=== PATIENT | male | born 1940 | race Caucasian/White ===

== ENCOUNTER 2019-12-31 04:30 | Inpatient (IN) ==
[2019-12-31] MEDS ORDERED: 0.9 % Sodium Chloride 1,000 ML IVC ONE ×2 (04:49→05:05)
[2019-12-31] MEDS ORDERED: Isovue-370 500 ML BOTTLE IVP ONE (04:50)
[2019-12-31] MEDS ORDERED: 0.9 % Sodium Chloride 1,000 ML ONE (04:52)
[2019-12-31 05:05] LABS: VBG HCO3 28 mEq/L (21-27); VBG PCO2 53 mmHg (41-51); VBG PH 7.32 pH Units (7.32-7.42); VBG PO2 40 mmHg (25-50)
[2019-12-31] MEDS ORDERED: Cefepime HCl 2,000 MG in 0.9 % Sodium Chloride Mini Bag 100 ML IVPB ONE (05:05)
[2019-12-31] MEDS ORDERED: Ondansetron 4 MG/2 ML VIAL IVP ONE (05:05)
[2019-12-31 05:08] LABS: Basophils % 0.1 %; Eosinophils % 0.1 %; Hematocrit 37.7 % (37.5-50.1); Hemoglobin 11.5 g/dL (12.9-16.9); Immature Granulocytes % 0.3 % (0-4); Lymphocytes # 0.8 K/mcL (0.6-4.6); Lymphocytes % 12.1 %; Mean Corpuscular HGB Conc 30.5 g/dL (31.6-35.5); Mean Corpuscular Volume 85.3 fL (83.0-100.0); Mean Platelet Volume 11.2 fL (9.4-12.4); Monocytes % 0.6 %; Neutrophils # 5.9 K/mcL (1.6-8.9); Platelet Count 206 K/mcL (140-400); Red Blood Count 4.42 M/mcL (4.19-5.50); Red Cell Distribution Width 15.9 % (11.5-14.5); Segmented Neutrophils % 86.8 %; White Blood Count 6.8 K/mcL (4.3-11.1)
[2019-12-31 05:18] LABS: INR 1.1; Prothrombin Time 12.2 Seconds (9.4-12.1)
[2019-12-31 05:20] LABS: Activated Partial Thrombo Time 31.4 Seconds (26.0-36.0)
[2019-12-31 05:26] LABS: Alanine Aminotransferase 9 Units/L (7-52); Albumin 4.1 g/dL (3.5-5.7); Albumin/Globulin Ratio 1.2 (1.1-2.2); Alkaline Phosphatase 79 Units/L (34-104); Aspartate Amino Transferase 15 Units/L (13-39); BUN/Creatinine Ratio 12 (6-26); Bilirubin,Direct 0.2 mg/dL (0.0-0.2); Bilirubin,Indirect 0.5 mg/dL (0.0-1.0); Bilirubin,Total 0.7 mg/dL (0.3-1.0); Blood Urea Nitrogen 17 mg/dL (8-23); Carbon Dioxide 26 mEq/L (23-29); Chloride 103 mEq/L (98-107); Ethanol < 10 mg/dL (Less than 10); Globulin 3.3 g/dL (2.4-3.5); Glucose 141 mg/dL (70-105); Osmolality,Calculated 290 (280-300); Potassium 3.9 mEq/L (3.5-5.1); Sodium 138 mEq/L (136-145); Total Protein 7.4 g/dL (6.4-8.9); Troponin I < 0.03 ng/mL (< 0.04); eGFR For African Americans 57 (> 60); eGFR For Non-African Americans 47 (> 60)
[2019-12-31 05:37] LABS: Lipase 17 Units/L (11-82)
[2019-12-31 05:39] LABS: Thyroid Stimulating Hormone 1.064 mcIU/mL (0.340-5.600)
[2019-12-31] MEDS ORDERED: Morphine Sulfate 2 MG/ML SYRINGE IVP ONE (06:01)
[2019-12-31 06:15] LABS: Bilirubin,Urine Negative (Negative); Blood,Urine Negative (Negative); Clarity,Urine Clear (Clear); Color,Urine Light-Yellow (Yellow); Glucose,Urine (UA) Normal (Normal); Ketones,Urine Negative (Negative); Leukocyte Esterase,Urine Negative (Negative); Nitrite,Urine Negative (Negative); Protein,Urine Trace mg/dL (Neg-Trace); Specific Gravity,Urine > 1.030 (1.010-1.025); Urobilinogen,Urine Normal (Normal)
[2019-12-31 06:41] LABS: Amphetamine Screen,Urine Negative ng/mL (Cutoff=1000); Barbiturate Screen,Urine Negative ng/mL (Cutoff=200)
[2019-12-31 06:42] LABS: Benzodiazepines Screen,Urine Negative ng/mL (Cutoff=300); Cannabinoid Screen,Urine Negative ng/mL (Cutoff = 50); Cocaine Screen,Urine Negative ng/mL (Cutoff= 300); Opiate Screen,Urine Positive ng/mL (Cutoff=300); Phencyclidine Screen,Urine Negative ng/mL (Cutoff=25)
[2019-12-31] MEDS ORDERED: Aspirin 81 MG TAB.CHEW PO ONE (06:46)
[2019-12-31] MEDS ORDERED: Azithromycin 500 MG in 0.9 % Sodium Chloride 250 ML IVPB ONE (06:58)
[2019-12-31] MEDS ORDERED: *HR* Heparin 5,000 UNIT/ML VIAL IVP PRN ×2 (07:05)
[2019-12-31] MEDS ORDERED: *HR* Heparin 5,000 UNIT/ML VIAL IVP ONE (07:05)
[2019-12-31] MEDS ORDERED: *HR* Ticagrelor 90 MG TABLET ONE (07:06)
[2019-12-31] MEDS ORDERED: *HR* Heparin 5,000 UNIT/ML VIAL ONE (07:07)
[2019-12-31] MEDS ORDERED: Heparin 25,000 UNIT/250 ML D5W 25,000 UNIT/250 ML IV.SOLN IVC SCH (07:15)
[2019-12-31] MEDS ORDERED: *HR* Heparin 10,000 UNIT/10 ML VIAL ONE ×2 (07:22→12:48)
[2019-12-31] MEDS ORDERED: ISOVUE-370 200 ML INFUS..BTL ONE ×2 (07:22→12:48)
[2019-12-31] MEDS ORDERED: Nitroglycerin 1,000 MCG/10 ML VIAL IV ONE ×3 (07:22→12:56)
[2019-12-31] MEDS ORDERED: Heparin 1,000 UNITS/500 mL 500 ML ONE ×2 (07:22→12:48)
[2019-12-31] MEDS ORDERED: 0.9 % Sodium Chloride 2,000 ML ONE ×2 (07:22→12:48)
[2019-12-31] MEDS ORDERED: *HR* Midazolam HCl 2 MG/2 ML VIAL ONE ×2 (07:42→13:28)
[2019-12-31] MEDS ORDERED: *HR* FentaNYL (PF) 100 MCG/2 ML VIAL ONE ×2 (07:42→13:29)
[2019-12-31] MEDS ORDERED: Tirofiban 12.5 MG/250ML 0 MG/0 ML BAG ONE (07:43)
[2019-12-31] MEDS ORDERED: Naloxone 0.4 MG/ML INJ IVP PRN (09:17)
[2019-12-31] MEDS ORDERED: Ondansetron 4 MG/2 ML VIAL IVP PRN (09:17)
[2019-12-31 09:22] LABS: Basophils % 0.1 %; Hematocrit 30.7 % (37.5-50.1); Immature Granulocytes % 0.3 % (0-4); Lymphocytes # 0.2 K/mcL (0.6-4.6); Lymphocytes % 1.5 %; Mean Corpuscular HGB Conc 31.3 g/dL (31.6-35.5); Mean Corpuscular Hemoglobin 26.3 pg (28.0-33.3); Mean Corpuscular Volume 84.1 fL (83.0-100.0); Monocytes # 0.2 K/mcL (0.0-1.3); Monocytes % 1.5 %; Neutrophils # 11.2 K/mcL (1.6-8.9); Platelet Count 165 K/mcL (140-400); Red Blood Count 3.65 M/mcL (4.19-5.50); Red Cell Distribution Width 15.8 % (11.5-14.5); Segmented Neutrophils % 96.6 %
[2019-12-31 09:31] LABS: Hemoglobin 9.6 g/dL (12.9-16.9); White Blood Count 11.6 K/mcL (4.3-11.1)
[2019-12-31 09:48] LABS: Albumin 3.2 g/dL (3.5-5.7); Albumin/Globulin Ratio 1.2 (1.1-2.2); Bilirubin,Direct 0.2 mg/dL (0.0-0.2); Bilirubin,Indirect 0.5 mg/dL (0.0-1.0); Bilirubin,Total 0.7 mg/dL (0.3-1.0); Globulin 2.6 g/dL (2.4-3.5); Total Protein 5.8 g/dL (6.4-8.9)
[2019-12-31 09:59] LABS: Carcinoembryonic Antigen 1.2 ng/mL (Less than 5.0)
[2019-12-31 11:24] LABS: Hepatitis B Surface Antigen Nonreactive (Nonreactive)
[2019-12-31] MEDS ORDERED: 0.9 % Sodium Chloride 250 ML IVC SCH (11:45)
[2019-12-31 11:54] LABS: Hepatitis A Antibody IgM Nonreactive (Nonreactive); Hepatitis C Virus Antibody Nonreactive (Nonreactive)
[2019-12-31 11:58] LABS: Hematocrit 34.2 % (37.5-50.1); Hemoglobin 10.4 g/dL (12.9-16.9)
[2019-12-31] MEDS ORDERED: Vancomycin 1,500 MG/265 ML IV.SOLN IVPB SCH (12:00)
[2019-12-31] MEDS ORDERED: Piperacillin/Tazobactam 3.375 GM in 0.9 % Sodium Chloride Mini Bag 100 ML IVPB SCH (12:00)
[2019-12-31] MEDS: Pantoprazole 40 MG in 0.9 % Sodium Chloride Mini Bag 100 ML IVC SCH ×4 (12:56→22:59)
[2019-12-31] MEDS ORDERED: Tirofiban 12.5 MG/250ML 12.5 MG/250 ML BAG ONE (12:58)
[2019-12-31 13:13] LABS: Prostate Specific Antigen 1.48 ng/mL (Less than 4.00)
[2019-12-31] MEDS ORDERED: Tirofiban 12.5 MG/250ML 12.5 MG/250 ML BAG IVC SCH (14:00)
[2019-12-31] MEDS ORDERED: Azithromycin 500 MG in 0.9 % Sodium Chloride 250 ML IVPB SCH (17:00)
[2019-12-31] MEDS: Cefepime HCl 2,000 MG in 0.9 % Sodium Chloride Mini Bag 100 ML IVPB SCH (17:16)
[2019-12-31] MEDS: Ampicillin 1,000 MG in 0.9 % Sodium Chloride Mini Bag 100 ML IVPB SCH ×2 (17:18→23:33)
[2019-12-31] MEDS: Acyclovir 500 MG in D5% in Water 100 ML IVPB SCH (17:54)
[2019-12-31] MEDS: Acetaminophen 325 MG TABLET PO PRN ×2 (18:18→22:51)
[2019-12-31 18:54] LABS: Hemoglobin 9.8 g/dL (12.9-16.9)
[2019-12-31] MEDS ORDERED: IPRATROPIUM/ALBUTEROL SULFATE 120 PUFF INHALER IH SCH (22:00)
[2019-12-31] MEDS ORDERED: Ipratropium 1 PUFF INHALER IH SCH (22:00)
[2019-12-31] MEDS ORDERED: Levalbuterol Neb 1.25 MG/3 ML ONE (23:35)
[2019-12-31 23:46] LABS: Hematocrit 29.6 % (37.5-50.1); Hemoglobin 9.1 g/dL (12.9-16.9)
[2020-01-01 00:02] LABS: Calcium 7.6 mg/dL (8.6-10.3); Magnesium 1.7 mg/dL (1.6-2.6)
[2020-01-01] MEDS: Acyclovir 500 MG in D5% in Water 100 ML IVPB SCH ×2 (00:18→07:53)
[2020-01-01] MEDS ORDERED: Magnesium Sulfate 1 GM/102 ML PIGGYBACK IVPB ONE (00:55)
[2020-01-01] MEDS: Pantoprazole 40 MG in 0.9 % Sodium Chloride Mini Bag 100 ML IVC SCH ×2 (03:20→07:57)
[2020-01-01] MEDS: Levalbuterol Neb 1.25 MG/3 ML IH SCH ×4 (04:11→21:47)
[2020-01-01] MEDS: Cefepime HCl 2,000 MG in 0.9 % Sodium Chloride Mini Bag 100 ML IVPB SCH (06:03)
[2020-01-01] MEDS: Ampicillin 1,000 MG in 0.9 % Sodium Chloride Mini Bag 100 ML IVPB SCH (06:03)
[2020-01-01 06:10] LABS: Hematocrit 29.9 % (37.5-50.1); Immature Platelets 9.2 % (1.1-6.1); Mean Corpuscular HGB Conc 30.1 g/dL (31.6-35.5); Mean Corpuscular Hemoglobin 26.1 pg (28.0-33.3); Mean Corpuscular Volume 86.7 fL (83.0-100.0); Platelet Count 133 K/mcL (140-400); Red Blood Count 3.45 M/mcL (4.19-5.50); Red Cell Distribution Width 16.7 % (11.5-14.5); White Blood Count 13.4 K/mcL (4.3-11.1)
[2020-01-01 06:25] LABS: Anisocytosis 1+ (Not Present); Lymphocytes # 1.6 K/mcL (0.6-4.6); Monocytes # 0.5 K/mcL (0.0-1.3); Platelet Estimate Decreased (Normal); Reactive Lymphocytes Present (Not Present)
[2020-01-01 06:29] LABS: Calcium 7.9 mg/dL (8.6-10.3); Potassium 3.9 mEq/L (3.5-5.1)
[2020-01-01] MEDS ORDERED: Aspirin 81 MG TAB.CHEW PO SCH (10:00)
[2020-01-01] MEDS ORDERED: Calcium Gluconate 1gm/50mL 1 GM/50 ML BAG IVPB PRN (10:00)
[2020-01-01] MEDS ORDERED: Ondansetron 4 MG/2 ML VIAL IVP PRN (11:29)
[2020-01-01] MEDS ORDERED: Naloxone 0.4 MG/ML INJ IVP PRN (11:29)
[2020-01-01] MEDS ORDERED: Ampicillin 2 GM in 0.9 % Sodium Chloride Mini Bag 100 ML IVPB SCH (12:00)
[2020-01-01] MEDS: Vancomycin 1,500 MG/265 ML IV.SOLN IVPB SCH (12:05)
[2020-01-01 16:02] LABS: Hemoglobin 9.1 g/dL (12.9-16.9)
[2020-01-01] MEDS: Cefepime HCl 2,000 MG in Water for inj. (sterile) 20 ML IVP SCH (17:02)
[2020-01-01] MEDS: Pantoprazole 40 MG VIAL IVP SCH (17:02)
[2020-01-01] MEDS: Azithromycin 500 MG in 0.9 % Sodium Chloride 250 ML IVPB SCH (17:03)
[2020-01-01] MEDS ORDERED: Pantoprazole 40 MG VIAL IVP SCH (18:00)
[2020-01-01] MEDS ORDERED: Acyclovir 800 MG in D5% in Water 250 ML IVPB SCH ×2 (18:00)
[2020-01-01 19:22] LABS: Uric Acid 4.4 mg/dL (2.3-7.6)
[2020-01-01 20:54] LABS: Sodium, Urine 20.5 mEq/L
[2020-01-01] MEDS ORDERED: Levalbuterol Neb 1.25 MG/3 ML IH ONE (23:31)
[2020-01-02 00:33] LABS: Albumin/Globulin Ratio 1.1 (1.1-2.2); Bilirubin,Total 0.5 mg/dL (0.3-1.0); Calcium 7.6 mg/dL (8.6-10.3); Globulin 2.8 g/dL (2.4-3.5); Magnesium 1.9 mg/dL (1.6-2.6); Phosphorous 1.7 mg/dL (2.7-4.5); Potassium 3.5 mEq/L (3.5-5.1); Total Protein 5.8 g/dL (6.4-8.9)
[2020-01-02 00:52] LABS: Basophils % 0.1 %; Hematocrit 28.5 % (37.5-50.1); Hemoglobin 8.8 g/dL (12.9-16.9); Immature Granulocytes % 0.7 % (0-4); Lymphocytes # 0.6 K/mcL (0.6-4.6); Lymphocytes % 4.7 %; Mean Corpuscular HGB Conc 30.9 g/dL (31.6-35.5); Mean Corpuscular Hemoglobin 25.7 pg (28.0-33.3); Mean Corpuscular Volume 83.3 fL (83.0-100.0); Mean Platelet Volume 11.9 fL (9.4-12.4); Monocytes # 1.1 K/mcL (0.0-1.3); Neutrophils # 10.8 K/mcL (1.6-8.9); Platelet Count 121 K/mcL (140-400); Red Blood Count 3.42 M/mcL (4.19-5.50); Red Cell Distribution Width 16.6 % (11.5-14.5); Segmented Neutrophils % 85.5 %; White Blood Count 12.6 K/mcL (4.3-11.1)
[2020-01-02 02:25] LABS: Platelet Estimate Normal (Normal)
[2020-01-02 02:36] LABS: VBG Ionized Calcium 1.13 mmol/L (1.15-1.35)
[2020-01-02] MEDS: Levalbuterol Neb 1.25 MG/3 ML IH SCH ×4 (03:38→21:54)
[2020-01-02] MEDS: Cefepime HCl 2,000 MG in Water for inj. (sterile) 20 ML IVP SCH ×2 (06:40→16:55)
[2020-01-02] MEDS: Pantoprazole 40 MG VIAL IVP SCH (06:40)
[2020-01-02] MEDS: Aspirin 81 MG TAB.CHEW PO SCH (07:56)
[2020-01-02 08:12] LABS: Hematocrit 27.8 % (37.5-50.1); Hemoglobin 8.8 g/dL (12.9-16.9)
[2020-01-02] MEDS: Vancomycin 1,500 MG/265 ML IV.SOLN IVPB SCH (12:24)
[2020-01-02] MEDS: Acetaminophen 325 MG TABLET PO PRN ×2 (12:25→19:52)
[2020-01-02] MEDS ORDERED: Potassium Phosphate 44 MEQ in 0.9 % Sodium Chloride 250 ML IVPB ONE (13:06)
[2020-01-02] MEDS ORDERED: 0.9 % Sodium Chloride 1,000 ML IVC SCH (14:15)
[2020-01-02 15:55] LABS: Hematocrit 29.9 % (37.5-50.1); Hemoglobin 9.4 g/dL (12.9-16.9)
[2020-01-02] MEDS ORDERED: 0.9 % Sodium Chloride 250 ML ONE (16:48)
[2020-01-02] MEDS: Azithromycin 500 MG in 0.9 % Sodium Chloride 250 ML IVPB SCH (16:54)
[2020-01-02] MEDS: Metoprolol XL (24 HR) Succ 25 MG TAB.ER.24H PO SCH (19:51)
[2020-01-03 00:35] LABS: Hematocrit 28.2 % (37.5-50.1); Hemoglobin 8.9 g/dL (12.9-16.9)
[2020-01-03 01:23] LABS: Hematocrit 30.1 % (37.5-50.1); Hemoglobin 9.4 g/dL (12.9-16.9); Immature Platelets 14.8 % (1.1-6.1); Mean Corpuscular HGB Conc 31.2 g/dL (31.6-35.5); Mean Corpuscular Volume 83.4 fL (83.0-100.0); Mean Platelet Volume 12.5 fL (9.4-12.4); Red Blood Count 3.61 M/mcL (4.19-5.50); Red Cell Distribution Width 16.6 % (11.5-14.5); White Blood Count 15.3 K/mcL (4.3-11.1)
[2020-01-03 01:34] LABS: BUN/Creatinine Ratio 15 (6-26); Blood Urea Nitrogen 21 mg/dL (8-23); Calcium 8.3 mg/dL (8.6-10.3); Carbon Dioxide 23 mEq/L (23-29); Chloride 104 mEq/L (98-107); Glucose 101 mg/dL (70-105); Osmolality,Calculated 283 (280-300); Phosphorous 2.1 mg/dL (2.7-4.5); Potassium 3.7 mEq/L (3.5-5.1); Sodium 135 mEq/L (136-145); eGFR For African Americans > 60 (> 60); eGFR For Non-African Americans 50 (> 60)
[2020-01-03] MEDS: Levalbuterol Neb 1.25 MG/3 ML IH SCH ×5 (03:50→21:30)
[2020-01-03] MEDS: Cefepime HCl 2,000 MG in Water for inj. (sterile) 20 ML IVP SCH ×2 (05:34→17:22)
[2020-01-03] MEDS: Aspirin 81 MG TAB.CHEW PO SCH (08:29)
[2020-01-03] MEDS: Metoprolol XL (24 HR) Succ 25 MG TAB.ER.24H PO SCH ×2 (08:29→20:18)
[2020-01-03 08:31] LABS: Hematocrit 27.6 % (37.5-50.1); Hemoglobin 8.7 g/dL (12.9-16.9)
[2020-01-03 12:46] LABS: Adenovirus F 40/41 PCR Not detected (Not detect); Astrovirus PCR Not detected (Not detect); Campylobacter by PCR Not detected (Not detect); Cryptosporidium by PCR Not detected (Not detect); Cyclospora cayetanensis PCR Not detected (Not detect); E. coli O157 by PCR Not detected (Not detect); Entamoeba histolytica PCR Not detected (Not detect); Enteroaggregative E.coli(EAEC) Not detected (Not detect); Enteropathogenic E.coli(EPEC) Not detected (Not detect); Enterotoxigenic E.coli (ETEC) Not detected (Not detect); Giardia lamblia PCR Not detected (Not detect); Norovirus GI/GII PCR Not detected (Not detect); Plesiomonas shigelloides PCR Not detected (Not detect); Rotavirus A PCR Not detected (Not detect); Salmonella PCR Not detected (Not detect); Sapovirus PCR Not detected (Not detect); Shig/EnteroinvasiveE coli EIEC Not detected (Not detect); Shigalike tox-prod E coli STEC Not detected (Not detect); Vibrio PCR Not detected (Not detect); Vibrio cholerae PCR Not detected (Not detect); Yersinia enterocolitica PCR Not detected (Not detect)
[2020-01-03 12:49] LABS: C.difficile Toxin A/B Gene PCR DETECTED (Not detect)
[2020-01-03] MEDS: Vancomycin Oral Soln 125 MG/2.5 ML UDC PO SCH ×3 (13:42→20:18)
[2020-01-03] MEDS: Azithromycin 250 MG TABLET PO SCH (14:43)
[2020-01-03] MEDS: Acetaminophen 325 MG TABLET PO PRN (17:23)
[2020-01-04] MEDS: Levalbuterol Neb 1.25 MG/3 ML IH SCH ×4 (03:18→21:48)
[2020-01-04 04:46] LABS: Basophils % 0.2 %; Eosinophils % 0.1 %; Hematocrit 27.5 % (37.5-50.1); Hemoglobin 8.9 g/dL (12.9-16.9); Immature Granulocytes % 0.6 % (0-4); Lymphocytes # 1.1 K/mcL (0.6-4.6); Lymphocytes % 8.6 %; Mean Corpuscular HGB Conc 32.4 g/dL (31.6-35.5); Mean Corpuscular Hemoglobin 26.5 pg (28.0-33.3); Mean Corpuscular Volume 81.8 fL (83.0-100.0); Monocytes # 1.7 K/mcL (0.0-1.3); Neutrophils # 10.2 K/mcL (1.6-8.9); Platelet Count 170 K/mcL (140-400); Red Blood Count 3.36 M/mcL (4.19-5.50); Red Cell Distribution Width 16.6 % (11.5-14.5); Segmented Neutrophils % 77.5 %; White Blood Count 13.2 K/mcL (4.3-11.1)
[2020-01-04 05:06] LABS: BUN/Creatinine Ratio 13 (6-26); Blood Urea Nitrogen 17 mg/dL (8-23); Calcium 8.1 mg/dL (8.6-10.3); Carbon Dioxide 22 mEq/L (23-29); Chloride 103 mEq/L (98-107); Creatine Kinase 227 Units/L (30-223); Glucose 96 mg/dL (70-105); Osmolality,Calculated 277 (280-300); Phosphorous 1.1 mg/dL (2.7-4.5); Potassium 3.6 mEq/L (3.5-5.1); Sodium 133 mEq/L (136-145); eGFR For African Americans > 60 (> 60); eGFR For Non-African Americans 54 (> 60)
[2020-01-04] MEDS: Cefepime HCl 2,000 MG in Water for inj. (sterile) 20 ML IVP SCH ×2 (05:34→16:22)
[2020-01-04] MEDS ORDERED: Potassium Phosphate 44 MEQ in 0.9 % Sodium Chloride 250 ML IVPB ONE (07:22)
[2020-01-04] MEDS: Aspirin 81 MG TAB.CHEW PO SCH (09:22)
[2020-01-04] MEDS: Azithromycin 250 MG TABLET PO SCH (09:23)
[2020-01-04] MEDS: Metoprolol XL (24 HR) Succ 25 MG TAB.ER.24H PO SCH ×2 (09:23→19:47)
[2020-01-04] MEDS: Vancomycin Oral Soln 125 MG/2.5 ML UDC PO SCH ×4 (09:31→19:47)
[2020-01-04] MEDS: Acetaminophen 325 MG TABLET PO PRN (11:40)
[2020-01-05] MEDS: Levalbuterol Neb 1.25 MG/3 ML IH SCH ×4 (03:45→22:01)
[2020-01-05 04:18] LABS: Bacteria,Urine Few per hpf (None-Few); Bilirubin,Urine Negative (Negative); Blood,Urine Moderate (Negative); Clarity,Urine Clear (Clear); Color,Urine Light-Orange (Yellow); Glucose,Urine (UA) Normal (Normal); Ketones,Urine Negative (Negative); Leukocyte Esterase,Urine Negative (Negative); Mucus,Urine Few per lpf (None-Few); Nitrite,Urine Negative (Negative); Protein,Urine 200 mg/dL (Neg-Trace); RBC,Urine 0-3 per hpf (0-3); Specific Gravity,Urine 1.021 (1.010-1.025); Squamous Epithelial Cell,Urine Few per hpf (None-Few); Urobilinogen,Urine Normal (Normal); WBC,Urine 0-3 per hpf (0-3)
[2020-01-05 05:16] LABS: Basophils % 0.2 %; Eosinophils % 0.2 %; Hematocrit 24.3 % (37.5-50.1); Hemoglobin 7.9 g/dL (12.9-16.9); Immature Granulocytes % 1.2 % (0-4); Lymphocytes # 1.3 K/mcL (0.6-4.6); Mean Corpuscular HGB Conc 32.5 g/dL (31.6-35.5); Mean Corpuscular Hemoglobin 26.4 pg (28.0-33.3); Mean Corpuscular Volume 81.3 fL (83.0-100.0); Mean Platelet Volume 12.9 fL (9.4-12.4); Monocytes # 1.7 K/mcL (0.0-1.3); Monocytes % 13.4 %; Neutrophils # 9.7 K/mcL (1.6-8.9); Platelet Count 177 K/mcL (140-400); Red Blood Count 2.99 M/mcL (4.19-5.50); Red Cell Distribution Width 16.6 % (11.5-14.5); White Blood Count 12.9 K/mcL (4.3-11.1)
[2020-01-05 05:35] LABS: BUN/Creatinine Ratio 10 (6-26); Blood Urea Nitrogen 12 mg/dL (8-23); Calcium 7.8 mg/dL (8.6-10.3); Carbon Dioxide 22 mEq/L (23-29); Chloride 102 mEq/L (98-107); Glucose 105 mg/dL (70-105); Magnesium 1.8 mg/dL (1.6-2.6); Osmolality,Calculated 272 (280-300); Phosphorous 1.4 mg/dL (2.7-4.5); Potassium 3.6 mEq/L (3.5-5.1); Sodium 131 mEq/L (136-145); eGFR For African Americans > 60 (> 60); eGFR For Non-African Americans 56 (> 60)
[2020-01-05] MEDS: Cefepime HCl 2,000 MG in Water for inj. (sterile) 20 ML IVP SCH (05:36)
[2020-01-05] MEDS ORDERED: Potassium Phosphate 44 MEQ in 0.9 % Sodium Chloride 250 ML IVPB ONE (08:12)
[2020-01-05] MEDS: Vancomycin Oral Soln 125 MG/2.5 ML UDC PO SCH ×4 (09:34→21:14)
[2020-01-05] MEDS: Aspirin 81 MG TAB.CHEW PO SCH (09:35)
[2020-01-05] MEDS: Metoprolol XL (24 HR) Succ 25 MG TAB.ER.24H PO SCH ×2 (09:35→21:06)
[2020-01-05 14:53] LABS: Hemoglobin 8.9 g/dL (12.9-16.9)
[2020-01-05] MEDS: levoFLOXacin 750 MG TABLET PO SCH (17:16)
[2020-01-06 02:27] LABS: Basophils % 0.2 %; Eosinophils % 0.1 %; Hematocrit 25.7 % (37.5-50.1); Hemoglobin 8.3 g/dL (12.9-16.9); Immature Granulocytes % 2.3 % (0-4); Lymphocytes # 1.4 K/mcL (0.6-4.6); Lymphocytes % 10.4 %; Mean Corpuscular HGB Conc 32.3 g/dL (31.6-35.5); Mean Corpuscular Hemoglobin 26.2 pg (28.0-33.3); Mean Corpuscular Volume 81.1 fL (83.0-100.0); Mean Platelet Volume 12.2 fL (9.4-12.4); Monocytes # 1.6 K/mcL (0.0-1.3); Monocytes % 11.6 %; Neutrophils # 10.4 K/mcL (1.6-8.9); Platelet Count 246 K/mcL (140-400); Red Blood Count 3.17 M/mcL (4.19-5.50); Red Cell Distribution Width 16.2 % (11.5-14.5); Segmented Neutrophils % 75.4 %; White Blood Count 13.8 K/mcL (4.3-11.1)
[2020-01-06 02:48] LABS: BUN/Creatinine Ratio 7 (6-26); Blood Urea Nitrogen 9 mg/dL (8-23); Calcium 7.9 mg/dL (8.6-10.3); Carbon Dioxide 24 mEq/L (23-29); Chloride 101 mEq/L (98-107); Glucose 110 mg/dL (70-105); Magnesium 1.9 mg/dL (1.6-2.6); Osmolality,Calculated 273 (280-300); Potassium 3.7 mEq/L (3.5-5.1); Sodium 132 mEq/L (136-145); eGFR For African Americans > 60 (> 60); eGFR For Non-African Americans 57 (> 60)
[2020-01-06 03:01] LABS: Platelet Estimate Normal (Normal); Reactive Lymphocytes Present (Not Present)
[2020-01-06] MEDS: Levalbuterol Neb 1.25 MG/3 ML IH SCH ×3 (03:41→15:53)
[2020-01-06] MEDS ORDERED: Potassium Phosphate 44 MEQ in 0.9 % Sodium Chloride 250 ML IVPB ONE (09:17)
[2020-01-06] MEDS: Acetaminophen 325 MG TABLET PO PRN (10:13)
[2020-01-06] MEDS: Vancomycin Oral Soln 125 MG/2.5 ML UDC PO SCH ×2 (10:13→13:46)
[2020-01-06] MEDS: Metoprolol XL (24 HR) Succ 25 MG TAB.ER.24H PO SCH (10:14)
[2020-01-06] MEDS: levoFLOXacin 750 MG TABLET PO SCH (10:14)
[2020-01-06] MEDS: Aspirin 81 MG TAB.CHEW PO SCH (10:14)
[2020-01-06 12:08] VITALS: BP 144/78
== END 2020-01-06 17:52 | disposition left against medical advice (07) | DRG 853 ==
LOC: SUATTDRO → EMEROOARM 04:30 → ICNU 13:53 → SUATTDRO 13:53 → ICNU 13:58 → 2NENU 14:08 → ICNU 17:00 → 2ANU 01-01 13:42
PROVIDERS: ADMIT Pharmacist; ATTEND Internal Medicine

== ENCOUNTER 2020-06-21 15:31 | Observation (INO) ==
[2020-06-21 16:15] LABS: Basophils % 0.4 %; Eosinophils % 0.8 %; Hematocrit 16.1 % (37.5-50.1); Immature Granulocytes % 0.2 % (0-4); Lymphocytes # 1.5 K/mcL (0.6-4.6); Mean Corpuscular Hemoglobin 19.3 pg (28.0-33.3); Mean Corpuscular Volume 69.1 fL (83.0-100.0); Mean Platelet Volume 11.5 fL (9.4-12.4); Monocytes # 0.5 K/mcL (0.0-1.3); Monocytes % 9.3 %; Nucleated Red Blood Cells 0.8 /100 WBC (0); Platelet Count 297 K/mcL (140-400); Red Blood Count 2.33 M/mcL (4.19-5.50); Red Cell Distribution Width 18.2 % (11.5-14.5); Segmented Neutrophils % 60.3 %
[2020-06-21 16:20] LABS: INR 1.2; Prothrombin Time 14.1 Seconds (9.4-12.1)
[2020-06-21 16:22] LABS: Hemoglobin 4.5 g/dL (12.9-16.9)
[2020-06-21 16:23] LABS: Activated Partial Thrombo Time 31.8 Seconds (26.0-36.0)
[2020-06-21 16:41] LABS: Hypochromasia Present (Not Present)
[2020-06-21 16:42] LABS: Anisocytosis 1+ (Not Present); Microcytosis Present (Not Present); Platelet Estimate Slight Decrease (Normal)
[2020-06-21 16:44] LABS: Albumin 3.9 g/dL (3.5-5.7); Albumin/Globulin Ratio 1.4 (1.1-2.2); Bilirubin,Direct 0.1 mg/dL (0.0-0.2); Bilirubin,Indirect 0.4 mg/dL (0.0-1.0); Bilirubin,Total 0.5 mg/dL (0.3-1.0); Globulin 2.8 g/dL (2.4-3.5); Total Protein 6.7 g/dL (6.4-8.9)
[2020-06-21 16:46] LABS: Troponin I 0.05 ng/mL (< 0.04)
[2020-06-21] MEDS ORDERED: Ondansetron 4 MG/2 ML VIAL IVP PRN (17:19)
[2020-06-21] MEDS ORDERED: Naloxone 0.4 MG/ML INJ IVP PRN (17:19)
[2020-06-21] MEDS ORDERED: D5% in Water 1,000 ML IVC PRN (17:22)
[2020-06-21] MEDS ORDERED: *HR* Dextrose 50 % in Water (Vial) 50 ML VIAL IVP PRN (17:22)
[2020-06-21] MEDS ORDERED: Dextrose Gel 15 GM/37.5 ML TUBE PO PRN ×2 (17:22)
[2020-06-21 17:23] LABS: BUN/Creatinine Ratio 9 (6-26); Blood Urea Nitrogen 11 mg/dL (8-23); Calcium 8.6 mg/dL (8.6-10.3); Carbon Dioxide 25 mEq/L (23-29); Chloride 106 mEq/L (98-107); Glucose 120 mg/dL (70-105); Osmolality,Calculated 287 (280-300); Potassium 3.7 mEq/L (3.5-5.1); Sodium 138 mEq/L (136-145); eGFR For African Americans > 60 (> 60); eGFR For Non-African Americans 56 (> 60)
[2020-06-21] MEDS ORDERED: Isovue-370 500 ML BOTTLE IVP ONE (17:23)
[2020-06-21] MEDS ORDERED: 0.9 % Sodium Chloride 250 ML IVC SCH (17:30)
[2020-06-21] MEDS: Pantoprazole 40 MG in 0.9 % Sodium Chloride Mini Bag 100 ML IVC SCH ×2 (18:52→23:57)
[2020-06-21] MEDS ORDERED: SODIUM CHLORIDE/NAHCO3/KCL/PEG 4,000 ML SOLN.RECON PO ONE (19:18)
[2020-06-21] MEDS: Insulin LISPRO 300 UNITS/3 ML VIAL SQ SCH (20:35)
[2020-06-21] MEDS: Furosemide 20 MG/2 ML VIAL IVP SCH (20:48)
[2020-06-22] MEDS: Insulin LISPRO 300 UNITS/3 ML VIAL SQ SCH ×3 (00:04→12:35)
[2020-06-22] MEDS: Aspirin 81 MG TAB.CHEW PO SCH (08:56)
[2020-06-22] MEDS: Metoprolol XL (24 HR) Succ 25 MG TAB.ER.24H PO SCH (08:56)
[2020-06-22] MEDS: Furosemide 20 MG/2 ML VIAL IVP SCH ×2 (08:57→22:31)
[2020-06-22] MEDS: Pantoprazole 40 MG in 0.9 % Sodium Chloride Mini Bag 100 ML IVC SCH (08:57)
[2020-06-22 09:25] LABS: Hemoglobin 6.9 g/dL (12.9-16.9)
[2020-06-22 09:34] LABS: BUN/Creatinine Ratio 8 (6-26); Blood Urea Nitrogen 11 mg/dL (8-23); Calcium 9.1 mg/dL (8.6-10.3); Carbon Dioxide 25 mEq/L (23-29); Chloride 106 mEq/L (98-107); Glucose 84 mg/dL (70-105); Magnesium 2.1 mg/dL (1.6-2.6); Osmolality,Calculated 289 (280-300); Phosphorous 3.5 mg/dL (2.7-4.5); Potassium 3.6 mEq/L (3.5-5.1); Sodium 140 mEq/L (136-145); eGFR For African Americans > 60 (> 60); eGFR For Non-African Americans 51 (> 60)
[2020-06-22] MEDS ORDERED: Lidocaine -MPF 2% 2 ML VIAL ONE (11:40)
[2020-06-22] MEDS ORDERED: *HR* Propofol 200 MG/20 ML VIAL IVP ONE ×2 (11:40→11:55)
[2020-06-22] MEDS ORDERED: *HR* PHENYLEPHRINE 1,000 MCG/10 ML SYRINGE IVP ONE (11:48)
[2020-06-22] MEDS ORDERED: 0.9 % Sodium Chloride 250 ML ONE (12:44)
[2020-06-22 17:44] LABS: Hematocrit 25.9 % (37.5-50.1)
[2020-06-23 03:07] LABS: Hemoglobin 7.1 g/dL (12.9-16.9)
[2020-06-23 03:09] LABS: Hematocrit 23.1 % (37.5-50.1)
[2020-06-23 03:21] LABS: Calcium 8.4 mg/dL (8.6-10.3); Magnesium 1.8 mg/dL (1.6-2.6); Phosphorous 3.5 mg/dL (2.7-4.5); Potassium 3.2 mEq/L (3.5-5.1)
[2020-06-23 07:45] VITALS: BP 159/69
[2020-06-23] MEDS: Furosemide 20 MG/2 ML VIAL IVP SCH (08:05)
[2020-06-23] MEDS: Aspirin 81 MG TAB.CHEW PO SCH (08:06)
[2020-06-23] MEDS: Metoprolol XL (24 HR) Succ 25 MG TAB.ER.24H PO SCH (08:06)
[2020-06-23 08:37] LABS: Hematocrit 24.9 % (37.5-50.1); Hemoglobin 7.6 g/dL (12.9-16.9)
[2020-06-23] MEDS ORDERED: Cholecalciferol (D-3) 1,000 UNIT (25MCG) TABLET PO SCH (09:00)
== END 2020-06-23 13:40 | disposition home or self-care (01) ==
LOC: 3ANU 15:31 → EMEROOARM 15:31 → 3ANU 18:22
PROVIDERS: ADMIT Internal Medicine; ATTEND Internal Medicine